=== PATIENT | male | born 1970 | race Caucasian/White ===

== ENCOUNTER 2018-06-12 19:57 | Emergency (ER) | payer MEDICAID ==
[~2018-06-12] VITALS: Ht 165.1 cm; Wt 89.8 kg
[2018-06-12 20:12] VITALS: BP 193/108
--- NOTE | 2018-06-12 20:27 | NUR ---
PT TAKEN TO XRAY FROM [facility]
--- NOTE | 2018-06-12 20:30 | NUR ---
PT RETURN FROM [facility] TO [facility]
--- NOTE | 2018-06-12 20:35 | NUR ---
PT TAKEN TO CHAIR A
--- NOTE | 2018-06-12 20:41 | NUR ---
PT MOVED TO BED 6
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
--- NOTE | 2018-06-12 21:05 | NUR ---
Dr. Flores evaluating patient at bedside.
[2018-06-12 21:42] LABS: BASOPHILS % (AUTO) 0.6 % (0.0-2.0); EOSINOPHILS # (AUTO) 0.3 K/uL (0-0.4); EOSINOPHILS % (AUTO) 4.1 % (0.0-4.0); HEMATOCRIT 44.7 % (36-52); HEMOGLOBIN 14.8 g/dL (12.0-18.0); LYMPHOCYTES # (AUTO) 1.4 K/uL (2.0-11.5); LYMPHOCYTES % (AUTO) 17.2 % (20.5-51.1); MEAN CORPUSCULAR HEMOGLOBIN 29 pg (27-31); MEAN CORPUSCULAR HGB CONC 33 g/dL (33-37); MEAN CORPUSCULAR VOLUME 88.4 fL (80-94); MONOCYTES # (AUTO) 0.6 K/uL (0.8-1.0); MONOCYTES % (AUTO) 6.9 % (1.7-9.3); NEUTROPHILS # (AUTO) 5.8 K/uL (1.8-7.7); NEUTROPHILS % (AUTO) 71.2 % (42.2-75.2); PLATELET COUNT (AUTO) 183 K/uL (140-450); RED BLOOD CELL COUNT(AUTO) 5.06 MIL/uL (4.20-6.10); RED CELL DISTRIBUTION WIDTH 13.4 % (11.6-13.7); WHITE BLOOD COUNT (AUTO) 8.1 K/uL (4.8-10.8)
[2018-06-12 21:56] LABS: PROTHROMBIN TIME 9.2 secs (10.8-13.4)
[2018-06-12 22:15] LABS: ALBUMIN 3.6 g/dL (3.4-5.0); ANION GAP 11.3 (8-16); CARBON DIOXIDE 27.3 mmol/L (21-32); CREATININE 1.1 mg/dL (0.7-1.3); POTASSIUM 3.6 mmol/L (3.5-5.1); TOTAL BILIRUBIN 0.4 mg/dL (0.0-1.0)
[2018-06-12] MEDS ORDERED: KETOROLAC 30 MG/ML VIAL IM ONE (22:20)
[2018-06-12] MEDS ORDERED: PANTOPRAZOLE 40 MG TABEC PO ONE (22:50)
[2018-06-12 23:05] VITALS: BP 134/91
--- NOTE | 2018-06-12 23:05 | NUR ---
Patient discharged with v/s stable. Written and verbal after care instructions given and explained. Patient alert, oriented and verbalized understanding of instructions. Ambulatory with steady gait. All questions addressed prior to discharge. ID band removed. Patient advised to follow up with PMD. Rx of PROTONIX given. Patient educated on indication of medication including possible reaction and side effects. Opportunity to ask questions provided and answered.
== END 2018-06-12 23:05 | disposition home or self-care (01) ==
LOC: MED 19:57
DX: K21.9 Gastro-esophageal reflux disease without esophagitis (principal)
CPT/HCPCS: 36415; 71046; 80053; 83880; 84484; 85025; 85610; 85730; 93005; 96372; 99284; J1885; 36600; 82803

== ENCOUNTER 2018-07-14 01:44 | Emergency (ER) | payer MEDICAID ==
[~2018-07-14] VITALS: Ht 162.6 cm; Wt 81.6 kg
[2018-07-14 01:54] VITALS: BP 138/85
--- NOTE | 2018-07-14 01:54 | NUR ---
TO BED #09 AMBULATORY, REPORT GIVEN TO VALERIE UP
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
--- NOTE | 2018-07-14 02:00 | NUR ---
CLEANSED AREA WITH NS, PAT DRY. CONTINUE TO MONITOR.
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
[2018-07-14] MEDS ORDERED: LIDOCAINE/EPI 1% 1:100000 20 ML VIAL INJ ONE (03:04)
[2018-07-14] MEDS ORDERED: BACITRACIN OINT 500 UNITS/GM PKT TP ONE (03:25)
--- NOTE | 2018-07-14 03:31 | NUR ---
PT L HAND PLACED IN ULNER GUTTER SPLINT, WRAPPED IN THERESE WRAP. +CSM
[2018-07-14 03:40] VITALS: BP 133/71
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
== END 2018-07-14 03:40 | disposition home or self-care (01) ==
LOC: MED 01:44
DX: S62.397A Other fracture of fifth metacarpal bone, left hand, initial encounter for closed fracture (principal); S51.811A Laceration without foreign body of right forearm, initial encounter; F10.129 Alcohol abuse with intoxication, unspecified; I10 Essential (primary) hypertension; Y04.0XXA Assault by unarmed brawl or fight, initial encounter; Y93.89 Activity, other specified; Y92.89 Other specified places as the place of occurrence of the external cause; Y99.8 Other external cause status
CPT/HCPCS: 12002; 29125; 73130; 90471; 90715; 99283; J2001; J7030; Q0092